=== PATIENT | female | born 1980 | race Caucasian/White ===

== ENCOUNTER 2019-08-10 14:58 | Emergency (ER) | payer OTHER ==
[~2019-08-10] VITALS: Ht 167.6 cm; Wt 92.7 kg
[2019-08-10 15:07] VITALS: BP 122/88
--- NOTE | 2019-08-10 15:40 | NUR ---
BREAK RN FOR PRIMARY RN MULUGETA. CARE ASSUMED AT THIS TIME. DR. ARTEAGA AT BEDSIDE FOR EVALUATION, AWAITING ORDERS. NAD NOTED. RESP REGULAR AND UNLABORED. CALL LIGHT IN REACH. FALL PRECAUTIONS IN PLACE.
--- NOTE | 2019-08-10 16:00 | NUR ---
IN TO DISCHARGE PAPERS, PT WITH MULTIPLE ADDITONAL REQUEST AND QUESTIONS FOR DR. ARTEAGA YET REQUESTING TO "LEAVE SOON POSSIBLE." DISCUSSED REQUESTS WITH MD DR. ARTEAGA, AWARE, STATES "HAVE ALREADY ADDRESSED CONCERNS WITH PT AND HOW SHE CAN FOLLOW UP." AWAITING WORKERS COMP PAPERS FROM [facility] FOR DISCHARGE.
--- NOTE | 2019-08-10 16:10 | NUR ---
PT REQUESTING ICE PACK FOR SHOULDER WHILE WAITING FOR WORKERS COMP PAPERS, PROVIDED PER [facility] OKAY. CMS INTACT. RADIAL PULSE NORMAL AND STRONG.
--- NOTE | 2019-08-10 16:30 | NUR ---
BACK IN TO DISCHARGE PT WITH WORKERS COMP PAPERS/COPIES, PT REQUESTING DISCHARGE PAPERS SPECIFICALLY STATE "HAVE TO WEAR GLOVES WHILE I WORK, THE DOCTOR SAID HE WAS GOING TO PUT THAT AND CAN HE LOOK IN MY EARS AND ADD MY UTI'S TO THE WORKERS COMP PAPERS BECAUSE THEY DON'T LET ME PEE ENOUGH AT WORK." DISCUSSED PT REQUESTS WITH MD, ADDRESSED BY MD. TO DISCHARGE PT.
== END 2019-08-10 16:46 | disposition home or self-care (01) ==
LOC: ED 16:30
DX: G89.29 Other chronic pain (principal); M25.512 Pain in left shoulder; L24.9 Irritant contact dermatitis, unspecified cause
CPT/HCPCS: 99281